=== PATIENT | female | born 1940 | race Two or more races ===

== ENCOUNTER 2016-09-18 15:37 | Emergency (ER) | payer MEDICAID ==
[~2016-09-18] VITALS: Ht 152.4 cm; Wt 66.2 kg
--- NOTE | 2016-09-18 16:00 | NUR ---
PT BIB FAMILY C/O L MEDIAL FOOT LAC 3 HRS LAST SAWYER WHICH PER PT HAD BLOOD SHOOTING FROM IT. NOW NO BLEEDING NOTED. LAC IS DRY, OPEN TO AIR, 0.2X0.2X0CM, EDGES WELL APPROXIMATED. PA AT BEDSIDE. NO OTHER COMPLAINTS. IN ER BED 11.
[2016-09-18] MEDS ORDERED: TDAP [DIPH/PERTUSSIS/TET] 0.5 ML VIAL IM ONE ×2 (16:06→16:30)
[2016-09-18 17:07] VITALS: BP 120/78
--- NOTE | 2016-09-18 17:07 | NUR ---
Patient discharged to home in stable condition. Written and verbal after care instructions given. Patient verbalizes understanding of instruction.
== END 2016-09-18 17:07 | disposition home or self-care (01) ==
LOC: ER 15:41
DX: S91.012A Laceration without foreign body, left ankle, initial encounter (principal); I10 Essential (primary) hypertension; E78.00 Pure hypercholesterolemia, unspecified; Z98.890 Other specified postprocedural states; W22.03XA Walked into furniture, initial encounter; Y93.89 Activity, other specified; Y92.89 Other specified places as the place of occurrence of the external cause; Y99.8 Other external cause status; Z88.0 Allergy status to penicillin
CPT/HCPCS: 73610; 90471; 90715; 99284; A4606; Z7610